=== PATIENT | male | born 1930 | race Caucasian/White ===

== ENCOUNTER 2017-05-14 10:53 | Inpatient (IN) | payer OTHER ==
[~2017-05-14] VITALS: Ht 177.8 cm; Wt 85.0 kg
[~2017-05-14 10:53] MED LIST: ALTACE2.5 MG PO; AMOXICILLIN500 MG PO; COUMADIN5 MG PO; FLEXERIL PO; LIPITOR20 MG PO; METFORMIN500 MG PO; ULTRAM50 MG PO
[2017-05-14 12:07] LABS: HEMATOCRIT 28.2 % (39.0-50.0); HEMOGLOBIN 8.5 g/dl (14.0-18.0); IMMATURE GRANULOCYTES 0.4 % (0.0-1.0); MEAN CELL VOLUME 80.3 fL CALC (80.0-100.0); MEAN CORPUSCULAR HGB 24.2 pG CALC (26.0-32.0); MEAN CORPUSCULAR HGB CONC 30.1 g/L CALC (32.0-36.0); NEUT# 1.65 thou/uL (1.82-7.42); RED CELL DISTRI WIDTH 21.4 % (11.5-15.5)
[2017-05-14 12:28] LABS: INTERNATIONAL NORMALIZED RATIO 2.8 RATIO (0.7-1.3); PROTHROMBIN TIME 31.4 SECONDS (9.0-12.5)
[2017-05-14 12:29] LABS: RED BLOOD COUNT 3.51 mill/uL (4.70-6.10)
[2017-05-14 12:30] LABS: ALBUMIN 4.2 g/dL (3.2-5.0); ALKALINE PHOSPHATASE 137 u/l (38-126); ANION GAP 17 (6-22 (CALC)); BILIRUBIN, TOTAL 1.1 mg/dL (0.0-1.4); BUN 27 mg/dL (8-23); BUN/CREATININE RATIO 22 (12-20 (CALC)); CALCIUM 9.4 mg/dL (8.4-10.2); CARBON DIOXIDE 24 mmol/l (22-30); CHLORIDE 105 mmol/l (95-108); CREATININE 1.2 mg/dL (0.7-1.3); GFR 57 ML/MIN (>=60 (CALC)); GFR FOR AFR.AMER. > 60 ML/MIN (>=60 (CALC)); GLUCOSE 168 mg/dL (82-115); POTASSIUM 4.4 mmol/l (3.5-5.1); SGOT/AST 34 u/l (19-48); SGPT/ALT 34 u/l (11-66); SODIUM 141 mmol/l (137-146); TOTAL PROTEIN 7.6 g/dL (6.3-8.2)
[2017-05-14 12:43] LABS: MYOGLOBIN 66 ng/mL (0 - 121)
[2017-05-14] MEDS ORDERED: NEXIUM40 M1 PO (13:40)
[2017-05-14] MEDS ORDERED: RANITIDINE150 M1 PO (13:40)
[2017-05-14] MEDS ORDERED: LIPITOR40 M1 PO (13:41)
[2017-05-14] MEDS ORDERED: FUROSEMIDE40 MG PO (13:41)
[2017-05-14] MEDS ORDERED: METOPROL TAR25 MG PO (13:41)
[2017-05-14 14:33] VITALS: BP 117/68
[2017-05-14 16:00] VITALS: BP 127/70
[2017-05-14 19:00] VITALS: BP 127/70
[2017-05-15 04:40] VITALS: BP 121/67
[2017-05-15 06:20] LABS: HEMATOCRIT 26.7 % (39.0-50.0); HEMOGLOBIN 8.2 g/dl (14.0-18.0); MEAN CELL VOLUME 78.5 fL CALC (80.0-100.0); MEAN CORPUSCULAR HGB 24.1 pG CALC (26.0-32.0); MEAN CORPUSCULAR HGB CONC 30.7 g/L CALC (32.0-36.0); RED BLOOD COUNT 3.4 mill/uL (4.70-6.10); RED CELL DISTRI WIDTH 21.2 % (11.5-15.5)
[2017-05-15 06:26] LABS: ANION GAP 15 (6-22 (CALC)); BUN 28 mg/dL (8-23); BUN/CREATININE RATIO 21 (12-20 (CALC)); CALCIUM 9.2 mg/dL (8.4-10.2); CALCULATED LDLCHOLESTEROL 38 mg/dL (62-129 (CALC)); CARBON DIOXIDE 28 mmol/l (22-30); CHLORIDE 104 mmol/l (95-108); CHOLESTEROL HDL RATIO 3.7 (<4.4 (CALC)); CREATININE 1.3 mg/dL (0.7-1.3); GFR 52 ML/MIN (>=60 (CALC)); GFR FOR AFR.AMER. > 60 ML/MIN (>=60 (CALC)); GLUCOSE 117 mg/dL (82-115); HDL CHOLESTEROL 19 mg/dL (>=40); MAGNESIUM 1.8 mg/dL (1.6-2.3); SODIUM 143 mmol/l (137-146); TOTAL CHOLESTEROL 72 mg/dl (0-199); TOTAL TRIGLYCERIDES 73 mg/dl (30-149); VLDL CHOLESTROL 15 mg/dl (0-38 (CALC))
[2017-05-15 08:10] VITALS: BP 143/87
[2017-05-15 09:35] LABS: INTERNATIONAL NORMALIZED RATIO 2.3 RATIO (0.7-1.3); PROTHROMBIN TIME 26.1 SECONDS (9.0-12.5)
[2017-05-15 15:00] VITALS: BP 125/70
[2017-05-15 18:58] VITALS: BP 145/78
[2017-05-16 00:20] VITALS: BP 135/78
[2017-05-16 04:28] VITALS: BP 118/62
[2017-05-16 07:02] LABS: HEMATOCRIT 26.8 % (39.0-50.0); HEMOGLOBIN 8.2 g/dl (14.0-18.0); IMMATURE GRANULOCYTES 0.4 % (0.0-1.0); MEAN CELL VOLUME 78.6 fL CALC (80.0-100.0); MEAN CORPUSCULAR HGB CONC 30.6 g/L CALC (32.0-36.0); NEUT# 1.25 thou/uL (1.82-7.42); RED BLOOD COUNT 3.41 mill/uL (4.70-6.10); RED CELL DISTRI WIDTH 20.9 % (11.5-15.5)
[2017-05-16 07:12] LABS: ANION GAP 16 (6-22 (CALC)); BUN 32 mg/dL (8-23); BUN/CREATININE RATIO 25 (12-20 (CALC)); CARBON DIOXIDE 29 mmol/l (22-30); CHLORIDE 101 mmol/l (95-108); CREATININE 1.3 mg/dL (0.7-1.3); GFR 52 ML/MIN (>=60 (CALC)); GFR FOR AFR.AMER. > 60 ML/MIN (>=60 (CALC)); GLUCOSE 105 mg/dL (82-115); MAGNESIUM 1.8 mg/dL (1.6-2.3); POTASSIUM 3.9 mmol/l (3.5-5.1); SODIUM 142 mmol/l (137-146)
[2017-05-16 07:16] LABS: INTERNATIONAL NORMALIZED RATIO 1.9 RATIO (0.7-1.3); PROTHROMBIN TIME 21.9 SECONDS (9.0-12.5)
[2017-05-16 08:05] VITALS: BP 114/53
[2017-05-16 11:00] VITALS: BP 115/64
[2017-05-16 16:00] VITALS: BP 144/73
[2017-05-16 20:24] VITALS: BP 140/78
[2017-05-17] VITALS (7 sets, daily range): BP systolic 110–139; BP diastolic 60–76
[2017-05-17 09:28] LABS: PROTHROMBIN TIME 22.6 SECONDS (9.0-12.5)
[2017-05-17 11:17] LABS: HEMATOCRIT 28.5 % (39.0-50.0); HEMOGLOBIN 8.6 g/dl (14.0-18.0); IMMATURE GRANULOCYTES 0.4 % (0.0-1.0); MEAN CELL VOLUME 78.9 fL CALC (80.0-100.0); MEAN CORPUSCULAR HGB 23.8 pG CALC (26.0-32.0); MEAN CORPUSCULAR HGB CONC 30.2 g/L CALC (32.0-36.0); NEUT# 1.71 thou/uL (1.82-7.42); RED BLOOD COUNT 3.61 mill/uL (4.70-6.10); RED CELL DISTRI WIDTH 20.8 % (11.5-15.5)
[2017-05-17 11:23] LABS: ANION GAP 15 (6-22 (CALC)); BUN 35 mg/dL (8-23); BUN/CREATININE RATIO 29 (12-20 (CALC)); CARBON DIOXIDE 30 mmol/l (22-30); CHLORIDE 100 mmol/l (95-108); CREATININE 1.2 mg/dL (0.7-1.3); GFR 57 ML/MIN (>=60 (CALC)); GFR FOR AFR.AMER. > 60 ML/MIN (>=60 (CALC)); GLUCOSE 192 mg/dL (82-115); POTASSIUM 3.8 mmol/l (3.5-5.1); SODIUM 141 mmol/l (137-146)
[2017-05-18] VITALS (7 sets, daily range): BP systolic 96–113; BP diastolic 42–60
[2017-05-18 05:17] LABS: PROTHROMBIN TIME 23.1 SECONDS (9.0-12.5)
[2017-05-18 05:22] LABS: ANION GAP 13 (6-22 (CALC)); BUN 36 mg/dL (8-23); BUN/CREATININE RATIO 31 (12-20 (CALC)); CALCIUM 9.2 mg/dL (8.4-10.2); CARBON DIOXIDE 30 mmol/l (22-30); CHLORIDE 103 mmol/l (95-108); CREATININE 1.1 mg/dL (0.7-1.3); GFR > 60 ML/MIN (>=60 (CALC)); GFR FOR AFR.AMER. > 60 ML/MIN (>=60 (CALC)); GLUCOSE 128 mg/dL (82-115); POTASSIUM 4.1 mmol/l (3.5-5.1); SODIUM 142 mmol/l (137-146)
[2017-05-18 05:39] LABS: HEMATOCRIT 27.1 % (39.0-50.0); HEMOGLOBIN 8.2 g/dl (14.0-18.0); IMMATURE GRANULOCYTES 0.7 % (0.0-1.0); MEAN CELL VOLUME 79.7 fL CALC (80.0-100.0); MEAN CORPUSCULAR HGB 24.1 pG CALC (26.0-32.0); MEAN CORPUSCULAR HGB CONC 30.3 g/L CALC (32.0-36.0); NEUT# 3.3 thou/uL (1.82-7.42); RED BLOOD COUNT 3.4 mill/uL (4.70-6.10); RED CELL DISTRI WIDTH 20.7 % (11.5-15.5)
[2017-05-19 04:26] VITALS: BP 120/65
[2017-05-19 05:01] LABS: PROTHROMBIN TIME 34.8 SECONDS (9.0-12.5)
[2017-05-19 05:06] LABS: HEMOGLOBIN 8.5 g/dl (14.0-18.0); IMMATURE GRANULOCYTES 0.5 % (0.0-1.0); MEAN CELL VOLUME 79.1 fL CALC (80.0-100.0); MEAN CORPUSCULAR HGB CONC 30.4 g/L CALC (32.0-36.0); NEUT# 3.94 thou/uL (1.82-7.42); RED BLOOD COUNT 3.54 mill/uL (4.70-6.10); RED CELL DISTRI WIDTH 20.8 % (11.5-15.5)
[2017-05-19 05:23] LABS: CALCIUM 9.1 mg/dL (8.4-10.2); CREATININE 1.4 mg/dL (0.7-1.3)
[2017-05-19 07:20] VITALS: BP 139/81
[2017-05-19 11:22] LABS: URINE BILIRUBIN - DIPSTICK NEGATIVE (NEGATIVE); URINE BLOOD DIPSTICK NEGATIVE (NEGATIVE); URINE COLOR YELLOW; URINE GLUCOSE - DIPSTICK NEGATIVE (NEGATIVE); URINE KETONE NEGATIVE (NEGATIVE); URINE LEUK ESTERASE NEGATIVE (NEGATIVE); URINE NITRITE - DIPSTICK NEGATIVE (Negative); URINE PROTEIN - DIPSTICK NEGATIVE (NEG-TRACE)
[2017-05-19 11:26] LABS: URINE CLARITY CLEAR
[2017-05-19 13:36] VITALS: BP 105/55
[2017-05-19 17:15] VITALS: BP 130/68
[2017-05-19 20:08] VITALS: BP 141/75
[2017-05-19 23:58] VITALS: BP 116/69
[2017-05-20 04:24] VITALS: BP 117/64
[2017-05-20 04:49] LABS: HEMATOCRIT 29.6 % (39.0-50.0); HEMOGLOBIN 9.1 g/dl (14.0-18.0); IMMATURE GRANULOCYTES 0.2 % (0.0-1.0); MEAN CELL VOLUME 79.1 fL CALC (80.0-100.0); MEAN CORPUSCULAR HGB 24.3 pG CALC (26.0-32.0); MEAN CORPUSCULAR HGB CONC 30.7 g/L CALC (32.0-36.0); NEUT# 2.44 thou/uL (1.82-7.42); RED BLOOD COUNT 3.74 mill/uL (4.70-6.10); RED CELL DISTRI WIDTH 20.5 % (11.5-15.5)
[2017-05-20 05:08] LABS: INTERNATIONAL NORMALIZED RATIO 3.5 RATIO (0.7-1.3); PROTHROMBIN TIME 39.9 SECONDS (9.0-12.5)
[2017-05-20 05:10] LABS: ANION GAP 14 (6-22 (CALC)); BUN 42 mg/dL (8-23); BUN/CREATININE RATIO 35 (12-20 (CALC)); CALCIUM 9.1 mg/dL (8.4-10.2); CARBON DIOXIDE 30 mmol/l (22-30); CHLORIDE 102 mmol/l (95-108); CREATININE 1.2 mg/dL (0.7-1.3); GFR 57 ML/MIN (>=60 (CALC)); GFR FOR AFR.AMER. > 60 ML/MIN (>=60 (CALC)); GLUCOSE 112 mg/dL (82-115); POTASSIUM 4.7 mmol/l (3.5-5.1); SODIUM 141 mmol/l (137-146)
[2017-05-20 08:10] VITALS: BP 133/74
[2017-05-20 11:28] VITALS: BP 121/66
[2017-05-20 15:11] VITALS: BP 134/65
[2017-05-20 23:44] VITALS: BP 126/76
[2017-05-21 05:30] VITALS: BP 139/72
[2017-05-21 06:03] LABS: HEMATOCRIT 29.1 % (39.0-50.0); HEMOGLOBIN 8.9 g/dl (14.0-18.0); IMMATURE GRANULOCYTES 0.3 % (0.0-1.0); MEAN CELL VOLUME 78.4 fL CALC (80.0-100.0); MEAN CORPUSCULAR HGB CONC 30.6 g/L CALC (32.0-36.0); NEUT# 2.04 thou/uL (1.82-7.42); RED BLOOD COUNT 3.71 mill/uL (4.70-6.10); RED CELL DISTRI WIDTH 20.3 % (11.5-15.5)
[2017-05-21 06:07] LABS: INTERNATIONAL NORMALIZED RATIO 2.4 RATIO (0.7-1.3); PROTHROMBIN TIME 27.4 SECONDS (9.0-12.5)
[2017-05-21 06:11] LABS: ANION GAP 18 (6-22 (CALC)); BUN 35 mg/dL (8-23); BUN/CREATININE RATIO 29 (12-20 (CALC)); CALCIUM 9.2 mg/dL (8.4-10.2); CARBON DIOXIDE 24 mmol/l (22-30); CHLORIDE 107 mmol/l (95-108); CREATININE 1.2 mg/dL (0.7-1.3); GFR 57 ML/MIN (>=60 (CALC)); GFR FOR AFR.AMER. > 60 ML/MIN (>=60 (CALC)); GLUCOSE 115 mg/dL (82-115); MAGNESIUM 2.1 mg/dL (1.6-2.3); POTASSIUM 4.7 mmol/l (3.5-5.1); SODIUM 144 mmol/l (137-146)
[2017-05-21 07:37] VITALS: BP 131/70
[2017-05-21 11:20] VITALS: BP 124/69
[2017-05-21 15:46] VITALS: BP 129/70
[2017-05-21 19:40] VITALS: BP 147/80
[2017-05-21 23:43] VITALS: BP 119/66
[2017-05-22 04:55] VITALS: BP 128/76
[2017-05-22 08:16] VITALS: BP 130/70
[2017-05-22 09:24] LABS: HEMATOCRIT 29.4 % (39.0-50.0); HEMOGLOBIN 8.8 g/dl (14.0-18.0); MEAN CELL VOLUME 80.3 fL CALC (80.0-100.0); MEAN CORPUSCULAR HGB CONC 29.9 g/L CALC (32.0-36.0); RED BLOOD COUNT 3.66 mill/uL (4.70-6.10); RED CELL DISTRI WIDTH 20.6 % (11.5-15.5)
[2017-05-22 09:44] LABS: INTERNATIONAL NORMALIZED RATIO 2.2 RATIO (0.7-1.3); PROTHROMBIN TIME 24.5 SECONDS (9.0-12.5)
[2017-05-22 09:48] LABS: ANION GAP 16 (6-22 (CALC)); BUN 31 mg/dL (8-23); BUN/CREATININE RATIO 25 (12-20 (CALC)); CALCIUM 9.2 mg/dL (8.4-10.2); CARBON DIOXIDE 25 mmol/l (22-30); CHLORIDE 107 mmol/l (95-108); CREATININE 1.2 mg/dL (0.7-1.3); GFR 57 ML/MIN (>=60 (CALC)); GFR FOR AFR.AMER. > 60 ML/MIN (>=60 (CALC)); GLUCOSE 162 mg/dL (82-115); POTASSIUM 4.9 mmol/l (3.5-5.1); SODIUM 144 mmol/l (137-146)
[2017-05-22 11:19] VITALS: BP 138/68
[2017-05-22] MEDS ORDERED: IRON325 M1 PO (13:58)
[2017-05-22 15:46] VITALS: BP 141/72
== END 2017-05-22 19:30 | disposition home or self-care (01) | DRG 291 ==
LOC: ED 10:53 → ED-I 13:18 → ED 13:58 → MS2 13:59
PROVIDERS: Emergency Medicine; Internal Medicine; Nurse Practitioner Family; ADMIT Internal Medicine; ATTEND Internal Medicine
DX: I13.0 Hypertensive heart and chronic kidney disease with heart failure and stage 1 through stage 4 chronic kidney disease, or unspecified chronic kidney disease (principal); I50.31 Acute diastolic (congestive) heart failure; N17.9 Acute kidney failure, unspecified; E11.22 Type 2 diabetes mellitus with diabetic chronic kidney disease; I48.2 Chronic atrial fibrillation; E78.5 Hyperlipidemia, unspecified; I25.10 Atherosclerotic heart disease of native coronary artery without angina pectoris; R23.0 Cyanosis; N18.9 Chronic kidney disease, unspecified; T50.2X5A Adverse effect of carbonic-anhydrase inhibitors, benzothiadiazides and other diuretics, initial encounter; F03.90 Unspecified dementia, unspecified severity, without behavioral disturbance, psychotic disturbance, mood disturbance, and anxiety; D46.9 Myelodysplastic syndrome, unspecified; I35.0 Nonrheumatic aortic (valve) stenosis; D50.9 Iron deficiency anemia, unspecified; Z79.01 Long term (current) use of anticoagulants; Z87.891 Personal history of nicotine dependence; Z79.84 Long term (current) use of oral hypoglycemic drugs; Z95.1 Presence of aortocoronary bypass graft; Z95.0 Presence of cardiac pacemaker
CPT/HCPCS: J1756